=== PATIENT | male | born 1960 | race Caucasian/White ===

== ENCOUNTER → 2017-07-11 | Day surgery (SDC) | payer BC ==
[~2017-07-11] VITALS: Ht 185.4 cm; Wt 92.0 kg
[~2017-07-11] MED LIST: ACETAMINOPHEN/HYDROcodone 325 MG/5 MG TAB PO PRN; ASCO500T PO; BUPIVACAINE/EPINEPHRINE 0.5% PF 10 ML VIAL INFIL ONE; CHLORHEXIDINE GLUCONATE 2 % 1 PACK (2 CLOTHS) TOPICAL PRN; CHLORHEXIDINE GLUCONATE 4% SOLN 120 ML BTL TOPICAL SCH; INSULIN HUMAN REGULAR 1,000 UNITS/10 ML VIAL SQ PRN; KETOROLAC TROMETHAMINE 30 MG/ML (IVP) VIAL IM PRN; LACTATED RINGER'S 1000 ML IV PRN; METOPROLOL TARTRATE 25 MG TAB PO PRN; MIDAZOLAM HCL 2 MG/2 ML VIAL ONE; ONDANSETRON HCL 4 MG/2 ML VIAL IV PRN; ONDANSETRON HCL 4 MG/2 ML VIAL IV PUSH ONE; POVIDONE IODINE 5% (ANTISEPSIS KIT) 4 APPLICATIONS EACH NARE PRN; PROPOFOL 200 MG/20 ML AMP IV ONE; SODIUM CHLOR 0.9% 250 ML INJ 250 ML ONE; SODIUM CHLORID 0.9% 500 ML IV PRN; TRIAMCINOLONE ACETONIDE 40 MG/ML VIAL ONE; VANCOMYCIN 1000 MG/NS 250 ML (for <70 kg) IV SCH; VITA200C3 PO; VITATAB11 PO; ceFAZolin 2 GM PREMIX 50 ML IV SCH; fentaNYL CITRATE 250 MCG/5 ML AMP ONE
[2017-07-11 13:30] VITALS: BP 125/75; PULSE 52; RESP 16; TEMP 98; O2SAT 98
--- NOTE | 2017-07-14 08:11 | MP ---
cc: IAM SMALL M.D. DATE OF SURGERY: 07/11/[address] Iam Small PREOPERATIVE DIAGNOSIS Recurrent rotator cuff tear of the right shoulder. POSTOPERATIVE DIAGNOSIS Recurrent rotator cuff tear of the right shoulder. PROCEDURE Anterior decompression with repair of rotator cuff, chronic. DETAILS OF PROCEDURE The patient was placed on the operating table in the supine position. Adequate general anesthesia was administered by the anesthesiologist. The patient was then placed in a modified beach-chair position with shoulder roll under the shoulder blade and the right shoulder was prepped and draped in the usual sterile fashion. Utilizing part of the old surgical scar a curved superior incision was made over the acromial process and extended for approximately one inch. The wound was taken down to subcutaneous tissues and bleeding points were electrocauterized down to the underlying scar tissue and deltoid muscle. The deltoid muscle was disinserted with electrocautery. Evacuation of clear fluid from the subacromial space was immediately encountered with considerable inflammation. We then did an anterior decompression with a high-speed power bur with removal of some of the undersurface of the acromial process. This was completed with a rongeur. The rotator cuff and was now fully visible and there did appear to be a longitudinal tear full-thickness just anterior to the bicipital groove. The biceps tendon did appear to be intact and was not frayed, therefore it was left in place. The rotator cuff was then repaired with interrupted sutures of #2 FiberWire. The deltoid muscle was then reinserted with interrupted sutures of #1 Tycron. The subcutaneous tissue was closed with interrupted 3-0 Vicryl and skin edges approximated with a running subcuticular 4-0 Vicryl. Steri-Strips were applied followed by application of a small dressing and a sling and swath immobilizer. The estimated blood loss was nil to 10 cc. The sponge counts, needle counts and instrument counts were reported correct x2. The patient was transferred to the recovery room in satisfactory condition. Iam Small MD [facility] /11:28 AM /7:59 AM
== END | disposition home or self-care (01) ==
LOC: PHSDC 09:30
PROVIDERS: ATTEND Orthopaedic Surgery
DX: M75.111 Incomplete rotator cuff tear or rupture of right shoulder, not specified as traumatic (principal); Z87.891 Personal history of nicotine dependence
CPT/HCPCS: 01610; 23412; J0690; J2250; J2405; J3010; J3370; J7050; J7120; J3301